=== PATIENT | female | born 1960 | race Caucasian/White ===

== ENCOUNTER 2019-06-16 12:16 | Outpatient (CLI) | payer BC ==
--- NOTE | 2019-06-16 14:45 | RAD ---
RADIOGRAPH CHEST 2 VIEWS: DATE: 06/16/2019 HISTORY: 59-year-old female with ICD-10: J18.9 pneumonia of both lower lobes. FINDINGS: There is no air space density, pulmonary edema, pleural effusion, pneumothorax, or cardiomegaly. IMPRESSION: No acute cardiopulmonary findings. jn [] POS: OFF
== END 2019-06-16 12:17 | disposition home or self-care (01) ==
LOC: NAV RAD 12:16
PROVIDERS: ATTEND Nurse Practitioner Adult Health
DX: J18.9 Pneumonia, unspecified organism (principal)
CPT/HCPCS: 71046